=== PATIENT | female | born 1945 | race Caucasian/White ===

== ENCOUNTER → 2019-03-31 | Outpatient (CLI) | payer MEDICARE, BC ==
[~2019-03-31] MED LIST: ARIP2TAB2 PO; CITA40TA5 PO; CLON0.5T11 PO; DONE10TA7 PO; FERR325T18 PO; GABA300C10 PO; HYDR-3245 PO; LEVO50TA5 PO; TRAM50TA2 PO
== END | disposition home or self-care (01) ==
LOC: SUSANVILLE 08:00
PROVIDERS: ATTEND Internal Medicine Cardiovascular Disease
DX: I25.10 Atherosclerotic heart disease of native coronary artery without angina pectoris (principal); Z87.891 Personal history of nicotine dependence
CPT/HCPCS: 93306